=== PATIENT | female | born 1990 | race Hispanic/Latino ===

== ENCOUNTER 2017-06-25 23:11 | Emergency (ER) | payer BC, OTHER | END 2017-06-26 00:08 | disposition home or self-care (01) | LOC: EDH 23:11 | DX: J06.9 Acute upper respiratory infection, unspecified (principal); M54.30 Sciatica, unspecified side | CPT/HCPCS: 87804 ==

== ENCOUNTER 2017-08-19 14:20 | Emergency (ER) | payer SELFPAY ==
[2017-08-19] MEDS ORDERED: ONDANSETRON ODT 4 MG TAB ONE (15:01)
[2017-08-19] MEDS ORDERED: DICYCLOMINE HCL 10 MG/ML 2ML AMP IM ONE (15:01)
== END 2017-08-19 16:15 | disposition home or self-care (01) ==
LOC: EDH 14:20
DX: K52.9 Noninfective gastroenteritis and colitis, unspecified (principal)
CPT/HCPCS: 96372; 99283; J0500